=== PATIENT | female | born 1935 | race Hispanic/Latino ===

== ENCOUNTER → 2021-08-08 | Outpatient (CLI) | payer OTHER ==
[~2021-08-08] MED LIST: ALEN70TA80 PO; LEVO50TA11 PO; LISI40TA9 PO; PRAV20TA4 PO
== END | disposition home or self-care (01) ==
LOC: RAH 13:34
PROVIDERS: ATTEND Orthopaedic Surgery
DX: M25.811 Other specified joint disorders, right shoulder (principal)
CPT/HCPCS: 73200

== ENCOUNTER 2021-09-26 08:02 | Observation (INO) | payer OTHER ==
[2021-09-20 13:04] LABS: BASOPHILS % (AUTO) 0.4 % (0.0-5.0); EOSINOPHILS % (AUTO) 1.4 % (0.0-8.0); HEMATOCRIT 43.9 % (36-48); LYMPHOCYTES % (AUTO) 27.4 % (21.0-51.0); MEAN CORPUSCULAR HEMOGLOBIN 29.6 pg (27.0-33.0); MEAN CORPUSCULAR HGB CONC 32.3 g/dL (32.0-36.0); MEAN CORPUSCULAR VOLUME 91.5 fL (79-99); MONOCYTES % (AUTO) 4.5 % (3.0-13.0); PLATELET COUNT (AUTO) 230 K/uL (130-400); RED CELL DISTRIBUTION WIDTH 13.5 % (11.0-15.5); WHITE BLOOD COUNT (AUTO) 7.1 K/uL (4.8-10.8)
[2021-09-20 13:12] LABS: CREATININE 0.5 mg/dL (0.5-1.5); POTASSIUM 3.7 mmol/L (3.5-5.1)
[2021-09-20 13:26] LABS: INR 1.02 (0.85-1.15); PROTHROMBIN TIME 11.1 SEC (9.6-11.6)
[2021-09-20 13:27] LABS: PARTIAL THROMBOPLASTIN TIME 24.8 SEC (26.3-35.5)
[2021-09-22] MEDS: LACTATED RINGERS 1000ML 1,000 ML IV SCH (13:30)
[2021-09-25 14:13] VITALS: BP 174/54
[2021-09-26] VITALS (23 sets, daily range): BP systolic 109–175; BP diastolic 50–74
[~2021-09-26] VITALS: Ht 154.9 cm; Wt 53.7 kg
[2021-09-26] MEDS: CEFAZOLIN SODIUM 2 GM VIAL IV SCH ×2 (05:00→12:45)
[~2021-09-26 08:02] MED LIST changes: -ALEN70TA80 PO; +GABA-529 PO; +TRAM50TA4 PO
[2021-09-26] MEDS ORDERED: CEFAZOLIN SODIUM 1 GM VIAL ONE (08:15)
[2021-09-26] MEDS: LACTATED RINGERS 1000ML 1,000 ML IV SCH (08:35)
[2021-09-26] MEDS ORDERED: SUCCINYLCHOLINE CHLORIDE 20 MG/ML 10 ML VIAL ONE (11:58)
[2021-09-26] MEDS ORDERED: LIDOCAINE PF 100MG/5ML (2%) SYRINGE 5ML ONE (11:58)
[2021-09-26] MEDS ORDERED: PROPOFOL 10 MG/ML 20ML VIAL IV ONE (11:59)
[2021-09-26] MEDS ORDERED: FENTANYL CITRATE PF 50 MCG/1 ML 2ML VIAL ONE (11:59)
[2021-09-26] MEDS ORDERED: TRANEXAMIC ACID 1000MG/10ML ONE (12:07)
[2021-09-26] MEDS ORDERED: MIDAZOLAM HCL 1 MG/ML 2ML VIAL ONE (12:13)
[2021-09-26] MEDS ORDERED: ROCURONIUM 10MG/1ML SYR 10 MG/ML ML ONE (12:13)
[2021-09-26] MEDS ORDERED: DEXAMETHASONE SOD PHOSPHATE 10MG/ML 1ML VIAL ONE (12:19)
[2021-09-26] MEDS ORDERED: HYDROCODONE/ACETAMINOPHEN 10/325 MG TAB PO PRN (12:30)
[2021-09-26] MEDS: 0.9%NACL 1000ML 1,000 ML IV SCH (12:30)
[2021-09-26] MEDS ORDERED: MORPHINE 4 MG SYG IVP PRN (12:30)
[2021-09-26] MEDS ORDERED: HYDROCODONE/ACETAMINOPHEN 5/325 MG TAB PO PRN (12:30)
[2021-09-26] MEDS: ACETAMINOPHEN 500 MG TABLET PO SCH ×2 (12:30→21:24)
[2021-09-26] MEDS ORDERED: EPHEDRINE SULFATE 50 MG/ML AMPULE ONE (12:53)
[2021-09-26] MEDS ORDERED: NEOSTIGMINE 5MG/5ML SYR IV ONE (14:42)
[2021-09-26] MEDS ORDERED: GLYCOPYRROLATE 1 MG/5 ML SYRINGE ONE (14:42)
[2021-09-26] MEDS: ONDANSETRON 4MG INJ IVP PRN (15:14)
[2021-09-26] MEDS: TRAMADOL HCL 50 MG TABLET PO SCH (18:41)
[2021-09-26] MEDS: LISINOPRIL 40 MG TABLET PO SCH (21:22)
[2021-09-26] MEDS: GABAPENTIN 100 MG CAPSULE PO SCH (21:23)
[2021-09-26] MEDS: FAMOTIDINE 20MG TAB PO SCH (21:24)
[2021-09-26] MEDS: CEFAZOLIN SODIUM 1 GM VIAL IVP SCH (21:29)
[2021-09-27] VITALS (7 sets, daily range): BP systolic 100–139; BP diastolic 44–72
[2021-09-27] MEDS: TRAMADOL HCL 50 MG TABLET PO SCH ×3 (01:09→12:00)
[2021-09-27] MEDS: ONDANSETRON 4MG INJ IVP PRN ×2 (01:13→09:06)
[2021-09-27] MEDS: 0.9%NACL 1000ML 1,000 ML IV SCH ×2 (03:29→08:30)
[2021-09-27] MEDS: ACETAMINOPHEN 500 MG TABLET PO SCH ×3 (05:04→19:30)
[2021-09-27] MEDS ORDERED: CEFAZOLIN SODIUM 1 GM VIAL ONE (05:17)
[2021-09-27] MEDS: CEFAZOLIN SODIUM 1 GM VIAL IVP SCH (05:21)
[2021-09-27 05:49] LABS: HEMATOCRIT 36.5 % (36-48); MEAN CORPUSCULAR HEMOGLOBIN 29.9 pg (27.0-33.0); MEAN CORPUSCULAR HGB CONC 32.6 g/dL (32.0-36.0); MEAN CORPUSCULAR VOLUME 91.7 fL (79-99); RED BLOOD CELL COUNT(AUTO) 3.98 MIL/uL (4.00-5.50); RED CELL DISTRIBUTION WIDTH 13.7 % (11.0-15.5); WHITE BLOOD COUNT (AUTO) 10.5 K/uL (4.8-10.8)
[2021-09-27 05:57] LABS: CREATININE 0.6 mg/dL (0.5-1.5); POTASSIUM 3.7 mmol/L (3.5-5.1)
[2021-09-27] MEDS: LEVOTHYROXINE 50 MCG TABLET PO SCH (06:02)
[2021-09-27] MEDS: LISINOPRIL 40 MG TABLET PO SCH ×2 (09:00→19:29)
[2021-09-27] MEDS: POLYETHYLENE GLYCOL 3350 17 GM POWD.PACK PO SCH (09:00)
[2021-09-27] MEDS: FAMOTIDINE 20MG TAB PO SCH ×2 (11:25→19:29)
[2021-09-27] MEDS: LACTATED RINGERS 1000ML 1,000 ML IV SCH (13:30)
[2021-09-27] MEDS ORDERED: TRAMADOL HCL 50 MG TABLET PO PRN (18:00)
[2021-09-27] MEDS: GABAPENTIN 100 MG CAPSULE PO SCH (19:29)
[2021-09-28] MEDS: ACETAMINOPHEN 500 MG TABLET PO SCH ×2 (03:06→12:14)
[2021-09-28] MEDS: LEVOTHYROXINE 50 MCG TABLET PO SCH (05:06)
[2021-09-28 05:23] VITALS: BP 111/59
[2021-09-28 08:18] VITALS: BP 123/69
[2021-09-28] MEDS: FAMOTIDINE 20MG TAB PO SCH (09:07)
[2021-09-28] MEDS: LISINOPRIL 40 MG TABLET PO SCH (09:07)
[2021-09-28] MEDS: POLYETHYLENE GLYCOL 3350 17 GM POWD.PACK PO SCH (09:07)
[2021-09-28 10:50] VITALS: BP 142/68
[2021-09-28] MEDS: LACTATED RINGERS 1000ML 1,000 ML IV SCH (13:30)
[2021-09-28 16:35] VITALS: BP 146/65
[2021-09-29] MEDS ORDERED: BISACODYL 10 MG SUPP.RECT RC PRN (12:30)
== END 2021-09-28 17:35 | disposition home or self-care (01) ==
LOC: DAH 08:02 → DAHIP 08:03 → 3DH 16:47
PROVIDERS: ADMIT Orthopaedic Surgery; ATTEND Orthopaedic Surgery
DX: M19.011 Primary osteoarthritis, right shoulder (principal); M75.120 Complete rotator cuff tear or rupture of unspecified shoulder, not specified as traumatic; Z20.822 Contact with and (suspected) exposure to COVID-19; D16.01 Benign neoplasm of scapula and long bones of right upper limb; M25.811 Other specified joint disorders, right shoulder; I10 Essential (primary) hypertension; E78.00 Pure hypercholesterolemia, unspecified; Z79.899 Other long term (current) drug therapy
CPT/HCPCS: 23472; 36415 ×2; 73030 ×2; 80048 ×2; 82948 ×9; 85025; 85027; 85610; 85730; 87635; 87641; 93005; 96374; 96375; 96376; 97039 ×4; 97116 ×2; 97161; 97530 ×4; A4215; A4221; A4222; A4223; A4600; A4663; A6260; C9803; G0378 ×55; J0330; J0690 ×3; J1100; J2001; J2250; J2405 ×3; J2704; J2710; J3010; J3490 ×3; J7120

== ENCOUNTER → 2024-06-19 | Outpatient (CLI) | payer OTHER | END | disposition home or self-care (01) | LOC: RAH 12:02 | PROVIDERS: ATTEND Internal Medicine | DX: I51.89 Other ill-defined heart diseases (principal); R60.9 Edema, unspecified | CPT/HCPCS: 93306 ==